=== PATIENT | female | born 1985 | race Caucasian/White ===

== ENCOUNTER 2021-09-25 10:15 | Inpatient (IN) | payer OTHER ==
[~2021-09-25] VITALS: Ht 167.6 cm; Wt 91.6 kg
[2021-09-25] MEDS ORDERED: PRENAT PO (12:35)
[2021-09-28] MEDS ORDERED: CORTISONE60 GM PO (06:12)
[2021-09-29] MEDS ORDERED: PRENATAL + DHA1 EAC1 PO (08:35)
== END 2021-09-30 15:38 | disposition home or self-care (01) | DRG 807 ==
LOC: SURG-SUITE 09-28 06:58 → LDR 09-28 06:58 → SURH 09-28 10:15 → SURG-SUITE 09-28 16:08
PROVIDERS: ADMIT Obstetrics & Gynecology; ATTEND Obstetrics & Gynecology
PROC: 10D17Z9 Manual Extraction of Products of Conception, Retained, Via Natural or Artificial Opening (ICD-10-PCS; 2021-09-28)
PROC: 0HQ9XZZ Repair Perineum Skin, External Approach (ICD-10-PCS; 2021-09-28)
PROC: 10907ZC Drainage of Amniotic Fluid, Therapeutic from Products of Conception, Via Natural or Artificial Opening (ICD-10-PCS; 2021-09-28)
PROC: 3E0P7VZ Introduction of Hormone into Female Reproductive, Via Natural or Artificial Opening (ICD-10-PCS; 2021-09-28)
PROC: 4A1HXFZ Monitoring of Products of Conception, Cardiac Rhythm, External Approach (ICD-10-PCS; 2021-09-28)
PROC: 10E0XZZ Delivery of Products of Conception, External Approach (ICD-10-PCS; principal; 2021-09-28 17:00)
DX: O72.0 Third-stage hemorrhage (principal); Z37.0 Single live birth; O70.0 First degree perineal laceration during delivery; O99.02 Anemia complicating childbirth; D64.9 Anemia, unspecified; Z3A.40 40 weeks gestation of pregnancy